=== PATIENT | male | born 1970 | race Caucasian/White ===

== ENCOUNTER 2018-03-16 06:40 | Emergency (ER) | payer OTHER ==
[2018-03-16] MEDS: KETOROLAC 60 MG INJ IM (07:06)
[2018-03-16 07:08] LABS: URINE BLOOD (Dip) POC Trace-intact (NEGATIVE); URINE GLUCOSE (Dip) POC Negative (NEGATIVE); URINE KETONES (Dip) POC Negative (NEGATIVE); URINE LEUKOCYTE EST (Dip) POC Negative (NEGATIVE); URINE NITRITE (Dip) POC Negative (NEGATIVE); URINE TOTAL PROTEIN POC 1+ (NEGATIVE)
== END 2018-03-16 07:22 | disposition home or self-care (01) ==
LOC: FTE 06:40
DX: M54.9 Dorsalgia, unspecified (principal); Z87.891 Personal history of nicotine dependence
CPT/HCPCS: 81003; 96372; 99284-25

== ENCOUNTER 2018-04-11 05:40 | Emergency (ER) | payer OTHER | END 2018-04-11 06:56 | disposition home or self-care (01) | LOC: FTE 05:40 | DX: H10.023 Other mucopurulent conjunctivitis, bilateral (principal); F17.210 Nicotine dependence, cigarettes, uncomplicated | CPT/HCPCS: 99283; Z7502 ==